=== PATIENT | male | born 1960 | race Caucasian/White ===

== ENCOUNTER 2019-08-31 16:44 | Observation (INO) ==
[2019-08-31 17:18] LABS: ABG Base Excess 3.1 mmol/L (-2.4-2.3); ABG HCO3 27.9 mmhg (22.0-26.0); ABG Oxygen Saturation 100 % (90-100); ABG PCO2 45.9 mmhg (35.0-45.0); ABG PO2 414.6 mmhg (80-100); ABG TCO2 29.3 mmhg (23-27)
[2019-08-31 17:19] LABS: Allen's Test Y; Oxygen 100 %
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
[2019-08-31 17:37] LABS: Basophils % 0.4 % (0.1-2.0); Eosinophils # 0.1 K/mm3 (0.0-0.4); Eosinophils % 0.8 % (0.1-12.0); Hematocrit 40.4 % (42.0-52.0); Hemoglobin 12.4 g/dL (14.1-18.0); Lymphocytes # 0.6 K/mm3 (0.7-4.5); Lymphocytes % 8.6 % (10-50); Mean Corpuscular HGB Conc 30.7 g/dL (31.8-35.4); Mean Corpuscular Volume 90.7 fl (80-94); Mean Platelet Volume 7.9 fl (7.4-10.4); Monocytes # 0.5 K/mm3 (0.1-1.0); Neutrophils # 5.9 K/mm3 (1.8-7.8); Neutrophils % 83.2 % (37.0-80.0); Platelet Count 277 K/mm3 (142-424); Red Blood Count 4.46 M/mm3 (4.60-6.20); Red Cell Distribution Width 15.5 % (11.5-17.5); White Blood Count 7.1 K/mm3 (4.8-10.8)
[2019-08-31 17:47] LABS: Albumin Level 3.7 gm/dL (3.4-5.0); Anion Gap 9.7 mEq/L (5-15); Calcium 9.1 mg/dL (8.5-10.1); Globulin 3.6 gm/dl (1.3-3.2); Total Protein,Serum 7.3 gm/dL (6.4-8.2)
[2019-08-31 18:25] LABS: Ethyl Alcohol 0 mg/dL (0-99)
[2019-08-31 20:34] LABS: Microscopic, Urine URINE MICROSCOPIC (MICROSCOPIC)
[2019-08-31 20:36] LABS: Appearance,Urine CLEAR (Clear); Blood, Urine Negative (Negative); Color,Urine DK YELLOW (Yellow); Glucose,Urine (UA) Negative (Negative); Ketones,Urine TRACE (Negative); Leukocyte Esterase,Urine Negative (Negative); Protein,Urine TRACE (Negative); Specific Gravity, Urine 1.025 (1.005-1.030); Urobilinogen,Urine 0.2 EU/dl (0.2)
[2019-08-31 20:39] LABS: Bilirubin,Urine Negative (Negative)
[2019-08-31 20:40] LABS: Amorphous Sediment,Urine 2+ /lpf; Mucus,Urine 2+ /lpf
[2019-08-31 20:48] LABS: Amphetamine/Metha Screen,Urine Negative ng/mL (<1000); Barbiturates Screen,Urine Negative ng/mL (<200); Benzodiazepines Screen,Urine Positive ng/mL (<200); Cannabinoid Screen,Urine Positive ng/mL (<50); Cocaine Screen,Urine Negative ng/mL (<300); Methadone Screen,Urine Negative ng/mL (<300); Opiate Screen,Urine Negative ng/mL (<300); Phencyclidine Screen,Urine Negative ng/mL (<25)
[2019-09-01 06:13] LABS: Basophils % 0.3 % (0.1-2.0); Eosinophils # 0.1 K/mm3 (0.0-0.4); Eosinophils % 1.6 % (0.1-12.0); Hematocrit 37.5 % (42.0-52.0); Hemoglobin 11.2 g/dL (14.1-18.0); Lymphocytes # 0.8 K/mm3 (0.7-4.5); Lymphocytes % 15.2 % (10-50); Mean Corpuscular Volume 91.8 fl (80-94); Monocytes # 0.4 K/mm3 (0.1-1.0); Monocytes % 7.9 % (1.7-9.3); Neutrophils # 3.8 K/mm3 (1.8-7.8); Platelet Count 225 K/mm3 (142-424); Red Blood Count 4.08 M/mm3 (4.60-6.20); Red Cell Distribution Width 15.4 % (11.5-17.5); White Blood Count 5.1 K/mm3 (4.8-10.8)
[2019-09-01 06:16] LABS: Anion Gap 9.7 mEq/L (5-15)
[2019-09-01 06:33] LABS: Calcium 8.2 mg/dL (8.5-10.1)
--- NOTE | 2019-09-01 07:43 | Pharmacy Consult Notes ---
[facility] Pharmacy VTE Monitoring - Patient Demographics Admission date: 08/31/19 Report Date: 09/01/19 Time: 07:42 Allergies/Adverse Reactions: Patient Allergies No Known Allergies Allergy (Verified 08/31/19 23:02) Height: 1.7 m Weight: 45.501 kg Patient Problems: Current Active Problems Altered mental state (Acute) Acute delirium (Acute) UTI (urinary tract infection) (Acute) Parkinson disease (Acute) - VTE Risk Labs: VTE Related Lab Results Hgb 11.2 g/dL (14.1-18.0) L 09/01/19 05:53 Hct 37.5 % (42.0-52.0) L 09/01/19 05:53 Plt Count 225 K/mm3 (142-424) 09/01/19 05:53 BUN 12 mg/dL (7-18) 09/01/19 05:53 Creatinine 0.82 mg/dL (0.70-1.30) 09/01/19 05:53 Estimated Creat Clear 62 mL/min (50-200) 09/01/19 05:53 Was VTE Risk Assessment Performed: Yes VTE Score: 0 VTE Risk Level: Very Low Risk - Prophylaxis VTE Prophylaxis Ordered?: Yes Types of VTE Prophylaxis: TEDS Knee High Location of Applied Device: Bilateral Lower Extremeties - VTE Diagnosis Confirmed Treatment or plan recommended: Continue Current Treatment
--- NOTE | 2019-09-01 17:20 | Electrocardiograph Report ---
APPROVED REPORT Exam: Resting ECG HR:56 bpm ECG Measurements Heart Rate 56 AXES WY 154 P 77 QRSd 86 QRS 86 QT 456 T79 QTc 440 <Conclusion> Sinus bradycardia Abnormal ECG Electronically signed by : Horacio Busby, 09/01/2019 17:19:36
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
== END 2019-09-02 16:00 | disposition home or self-care (01) ==
LOC: 2ND 16:44 → ER 16:44 → 2ND 22:20
PROVIDERS: ADMIT Emergency Medicine; ATTEND Emergency Medicine
CPT/HCPCS: 36415; 70450; 71010; 71045; 80048; 80053; 80305; 81001; 82375; 82803; 83605; 83735; 84484; 85025; 87040; 87086; 93005; 96365; 96367; 97162; 99285; G0378

== ENCOUNTER 2022-02-06 11:53 | Emergency (ER) | payer MEDICAID, SELFPAY ==
--- NOTE | 2022-02-06 14:55 | HMH.EDUTC ---
[facility] [place] Clinical Impression: Strep [place] Disposition: Home, Self-Care Condition on Discharge: Good Instructions: DI for Strep Throat Additional Instructions: Drink plenty of fluids. Take tylenol or ibuprofen for pain or fever. Take the medications as directed. Follow up with your regular doctor. GO TO THE ER FOR ANY WORSENING SYMPTOMS Throw your tooth brush away and get a new one. Prescriptions: Amoxicillin/Potassium Clav [Amox-Clav 875-125 mg Tablet] 1 tab PO BID #20 tab Transmission Status: Received by [id number] methylPREDNISolone [Medrol] 4 mg PO DIRECTED 6 Days #21 packet Transmission Status: Received by [id number] Referrals: Sachin Knight [Primary Care Provider] - Time of Disposition: 15:37 Medical Decision Making - Medical Records Medical records reviewed: No: I reviewed the patient's medical records. - Nehemiah Inquiry Pt receiving controlled substance: No Vital Signs: 02/06/22 15:26 02/06/22 16:05 Temperature 98.3 F 98.3 F Temperature Source Oral Pulse Rate 74 Pulse Rate [Left Radial] 77 Respiratory Rate 18 18 Blood Pressure 119/69 Blood Pressure [Right Arm] 122/74 Blood Pressure Mean [Right Arm] 90 02 Sat by Pulse Oximetry 100 Oxygen Delivery Method Room Air - Lab Data Lab results reviewed: Yes: I reviewed the patient's lab results. Lab Results 02/06/22 15:07: Strep Scn [facility] Positive A Orders (Tests/Meds): ED MEDICATIONS Discontinued Medications Generic Name Dose Route Start Last Admin Trade Name Anders PRN Reason Stop Dose Admin Ceftriaxone Sodium 1 gm 02/06/22 15:23 02/06/22 16:00 Ceftriaxone 1gm Vial IM 02/06/22 15:24 1 gm ONCE ONE Administration Lidocaine HCl 0 ml 02/06/22 15:23 02/06/22 16:00 Lidocaine 1% 5ml Pf Vial IM 02/06/22 15:24 1 ml ONCE ONE Administration [facility] [place] - General Stated complaint: sore throat,cough,headache Time Seen by Provider: 02/06/22 14:55 - History of Present Illness Provider Complaint: He has had a sore throat for the past 1 week. Both his daugheter and grandson have strep throat at this time. He denies any shortness of breath or chest pain. - Related Data Home Medications Medication Instructions Recorded Confirmed ALPRAZolam [Xanax 1mg tab] 1 mg PO TIDP PRN 08/31/19 11/24/19 clonazePAM [Clonazepam] 1 mg PO TID 08/31/19 11/24/19 Cyproheptadine HCl 4 mg PO BID 09/01/19 11/24/19 Previous Rx's Medication Instructions Recorded benztropine 2 mg tablet 2 mg PO TID #90 tab 11/24/19 carbidopa 25 mg-levodopa 100 mg 8 tab PO DAILY #240 tab 11/24/19 tablet donepezil 10 mg tablet 10 mg PO DAILY #30 tab 11/24/19 Amoxicillin/Potassium Clav 1 tab PO BID #20 tab 02/06/22 [Amox-Clav 875-125 mg Tablet] methylPREDNISolone [Medrol] 4 mg PO DIRECTED 6 Days #21 02/06/22 packet Allergies Allergy/AdvReac Type Severity Reaction Status Date / Time No Known Allergies Allergy Verified 11/24/19 08:13 [facility] History - Hepatitis A Screen Attestation statement:: This patient has been screened for Hepatitis A risk factors. I have reviewed the patient's past medical history: Yes Medical History: Reports:: Cancer Denies:: Diabetes Mellitus Type 1, Diabetes Mellitus Type 2, MRSA Other Medical History: Reports: Chemotherapy, Radiation Therapy, Other Comment: Parkinsons Disease Other Surgeries: Yes: Hernia Repair Amputation: No - Social History Smoking Status: Current every day smoker Tobacco Type: cigarettes # Packs/Day (cigarettes): 2 #Yrs smoked (if former smoker): 40 Alcohol Intake: former Alcohol Intake Frequency:: other (denies past 7 years) Substance Use Type: former substance user Occupational Status: disabled Housing: house Household Members: family Family Hx:: Cancer, Hyperlipidemia, Hypertension, Stroke ROS Obtained: Yes All systems reviewed & no additional complaints - Constitutional Constitutiona
[2022-02-06 15:22] LABS: UTC Strep Screen (Rapid) Positive (Negative)
[2022-02-06 15:26] VITALS: BP 122/74; PULSE 77; RESP 18; TEMP 36.8; O2SAT 100; BMI 17.1
[2022-02-06 16:05] VITALS: BP 119/69; PULSE 74; RESP 18; TEMP 36.8; O2SAT 100
== END 2022-02-06 16:06 | disposition home or self-care (01) ==
PROVIDERS: Emergency Provider Nurse Practitioner Family; PCP Family Medicine
DX: J02.0 Streptococcal pharyngitis (principal); F17.210 Nicotine dependence, cigarettes, uncomplicated
CPT/HCPCS: 87880; 96372; 99213; G0463; J0696